=== PATIENT | male | born 1995 | race Caucasian/White ===

== ENCOUNTER 2020-09-14 00:07 | Emergency (ER) | payer SELFPAY ==
[~2020-09-14] VITALS: Ht 162.6 cm; Wt 79.4 kg
[2020-09-14 00:11] VITALS: BP 130/74
--- NOTE | 2020-09-14 00:15 | NUR ---
PT TAKEN TO BED #7 VIA W/C
--- NOTE | 2020-09-14 00:30 | NUR ---
DR. MASTERS AT BEDSIDE FOR EXAM
--- NOTE | 2020-09-14 00:30 | NUR ---
Note undone in EDM - 09/14/20 at 0300 by JOHNSON PATIENT PRESENTS TO ED WITH WITH C/O VOMITING AND "MY BODIES SHAKING' . PT STATES I DID METH AND SMOKED POT TODAY. DENIES N/V/D; SKIN IS PINK/WARM/DRY; AAOX4 WITH EVEN AND STEADY GAIT; LUNGS CLEAR BL; HR EVEN AND REGULAR; PT DENIES ANY FEVER, CP, SOB, OR COUGH AT THIS TIME; PATIENT STATES PAIN OF 0/10 AT THIS TIME; VSS; PATIENT POSITIONED FOR COMFORT; HOB ELEVATED; BEDRAILS UP X2; BED DOWN. ER MADE AWARE OF PT STATUS.
--- NOTE | 2020-09-14 00:30 | NUR ---
PATIENT PRESENTS TO ED ACCOMPANIED BY BROTHER WITH c/o vomiting & "my bodies shaking" . PT STATES " I DID METH AND SMOKED POT TODAY". SKIN IS PINK/WARM/DRY; AAOX4 WITH EVEN AND & SLIGHTLY UNSTEADY GAIT; LUNGS CLEAR BL; HR EVEN AND REGULAR; PT DENIES ANY FEVER, CP, SOB, OR COUGH AT THIS TIME; PATIENT STATES PAIN OF 0/10 AT THIS TIME; VSS; PATIENT POSITIONED FOR COMFORT; HOB ELEVATED; BEDRAILS UP X2; BED DOWN. ER MD MADE AWARE OF PT STATUS.
[2020-09-14] MEDS ORDERED: NACL 0.9% 1,000 ML IV ONE ×2 (00:35→01:25)
[2020-09-14] MEDS ORDERED: HALOPERIDOL IM 5 MG/ML VIAL IVP ONE (00:35)
[2020-09-14 00:56] LABS: BASOPHILS # (AUTO) 0.1 K/uL (0.00-0.22); EOSINOPHILS # (AUTO) 0.1 K/uL (0-0.4); HEMOGLOBIN 16.5 g/dL (12.0-18.0); LYMPHOCYTES # (AUTO) 2.4 K/uL (2.0-11.5); MEAN CORPUSCULAR HEMOGLOBIN 31 pg (27-31); MEAN CORPUSCULAR HGB CONC 34 g/dL (33-37); MEAN CORPUSCULAR VOLUME 92.2 fL (80-94); MONOCYTES # (AUTO) 0.6 K/uL (0.8-1.0); MONOCYTES % (AUTO) 9.1 % (1.7-9.3); NEUTROPHILS % (AUTO) 49.9 % (42.2-75.2); PLATELET COUNT (AUTO) 212 K/uL (140-450); RED BLOOD CELL COUNT(AUTO) 5.31 MIL/uL (4.20-6.10); RED CELL DISTRIBUTION WIDTH 13.6 % (11.6-13.7); WHITE BLOOD COUNT (AUTO) 6.1 K/uL (4.8-10.8)
[2020-09-14 01:05] LABS: ANION GAP 11.2 (8-16); CARBON DIOXIDE 31.5 mmol/L (21-32); CREATININE 0.9 mg/dL (0.6-1.3); POTASSIUM 3.7 mmol/L (3.5-5.1)
[2020-09-14 01:11] LABS: TOTAL BILIRUBIN 1.3 mg/dL (0.0-1.0)
--- NOTE | 2020-09-14 01:25 | NUR ---
PT UNABLE TO PROVIDE URINE AT THIS TIME. VERBAL ORDER FOR NS BOLUS RECEIVED AND CARRIED OUT.
--- NOTE | 2020-09-14 02:10 | NUR ---
straight cathed for ua without difficulty and immediate return of small amount dark abelino colored urine.
[2020-09-14 02:38] LABS: BARBITURATE, URINE NEGATIVE ng/ml (NEG <=200); BENZODIAZEPINE, URINE NEGATIVE ng/mL (NEG <=200); CANNABINOID, URINE POSITIVE ng/mL (NEG <=50); COCAINE, URINE NEGATIVE ng/mL (NEG <=300); OPIATE, URINE NEGATIVE ng/mL (NEG <=2000); PHENCYCLIDINE SCREEN,URINE NEGATIVE ng/mL (NEG <=25)
--- NOTE | 2020-09-14 06:00 | NUR ---
Patient appears to be resting comfortably in bed. Vital Signs within normal limits. Respirations even and unlabored.
[2020-09-14 06:48] VITALS: BP 105/67
--- NOTE | 2020-09-14 06:48 | NUR ---
Patient discharged with v/s stable. Written and verbal after care instructions given and explained. Patient verbalized understanding. Ambulatory with steady gait. All questions addressed prior to discharge. Advised to follow up with PMD.. armband removed
== END 2020-09-14 06:48 | disposition home or self-care (01) ==
LOC: MED 00:07
DX: R11.15 Cyclical vomiting syndrome unrelated to migraine (principal); F12.929 Cannabis use, unspecified with intoxication, unspecified; F15.129 Other stimulant abuse with intoxication, unspecified; F17.210 Nicotine dependence, cigarettes, uncomplicated
CPT/HCPCS: 36415; 80053; 80305; 85025; 96361; 96374; 99283; J1630; J7030